=== PATIENT | female | born 1980 | race Caucasian/White ===

== ENCOUNTER 2019-06-20 14:55 | Emergency (ER) | payer SELFPAY ==
[~2019-06-20] VITALS: Ht 152.4 cm; Wt 66.7 kg
[2019-06-20 15:06] VITALS: BP 126/63; TEMP 98.4
[2019-06-20] MEDS ORDERED: ZITHROMAX Z PA250 MG PO (18:08)
[2019-06-20] MEDS ORDERED: PROAIR HFA0.09 MG/AC IH (18:08)
[2019-06-20 18:16] VITALS: PULSE 79
== END 2019-06-20 18:16 | disposition home or self-care (01) ==
LOC: COL.ER 14:55
DX: J11.1 Influenza due to unidentified influenza virus with other respiratory manifestations (principal)

== ENCOUNTER 2019-07-14 23:06 | Inpatient (IN) | payer SELFPAY ==
[~2019-07-14] VITALS: Wt 66.8 kg
[~2019-07-14 23:06] MED LIST: MEDROL 4MG DOSPA4 MG PO; PREDNISONE20 MG PO; PROAIR HFA0.09 MG/AC IH; ZITHROMAX Z PA250 MG PO
[2019-07-15] VITALS (634 sets, daily range): BP systolic 114–131; BP diastolic 72–99; PULSE 96–109; TEMP 98.1–98.6; O2SAT 84–99
[2019-07-15 02:27] LABS: HEMATOCRIT 43.3 % (37.0-47.0); HEMOGLOBIN 14.1 g/dl (12.5-16.0); MEAN CELL VOLUME 90 fl (80.0-100.0); MEAN CORPUSCULAR HEMOGLOBIN 29 pg (27.0-31.0); MEAN CORPUSCULAR HGB CONC 33 g/dl (33.0-37.0); MEAN PLATELET VOLUME 10.2 fl (7.4-10.4); PLATELET COUNT 277 K/mm3 (130-400); REDCELL DISTRIBUTION WIDTH-CV 13.8 % (11.5-14.5)
[2019-07-15 03:12] LABS: ALBUMIN 4.9 gm/dL (3.5-5.0); BILIRUBIN,TOTAL 0.6 mg/dL (0.0-1.0); CALCIUM 9.6 mg/dL (8.4-10.2); CREATININE, serum 0.51 (0.52-1.25); POTASSIUM 3.7 mmol/L (3.4-5.0); TOTAL PROTEIN 8.5 gm/dL (6.4-8.2)
[2019-07-15 03:36] LABS: COLLECTION METHOD CLEAN CATCH
[2019-07-15 03:39] LABS: EOSINOPHIL 20 % (0-4); LYMPHOCYTE 20 % (20.0-51.0); NEUTROPHILS 60 % (42.0-75.2); PLATELET ESTIMATE NORMAL (NORMAL)
[2019-07-15 03:40] LABS: PH 5 (5-8); SQUAMOUS EPITHELIAL 0-2 /hpf; URINE APPEARANCE Clear; URINE BACTERIA None Seen /hpf; URINE BILIRUBIN Negative (NEGATIVE); URINE BLOOD 1+ (NEGATIVE); URINE COLOR Straw; URINE GLUCOSE Negative (NEGATIVE); URINE KETONE 1+ (NEGATIVE); URINE LEUKOCYTE ESTERASE Negative (NEGATIVE); URINE NITRATE Negative (NEGATIVE); URINE PROTEIN(semi-quant) Negative (NEGATIVE); URINE RBC 0-2 /hpf; URINE UROBILINOGEN Negative (NEGATIVE)
[2019-07-15] MEDS ORDERED: TYLENOL 325MG325 MG PO (08:54)
--- NOTE | 2019-07-15 10:16 | NUR ---
PATIENT ARRIVED TO UNIT ROOM ICU 12 @ 0924. AMBULATED FROM STRETCHER TO BED. GAIT STEADY. PATIENT ORIENTED TO ROOM. PRESENTS WITH NO DISTRESS. SEE FLOW SHEET FOR VS OBTAINED WITH TACHYCARDIA. DROPLET ISOLATION IN PLACE FOR COVID-19 TEST PENDING. BED IN LOW POSITION AND CALL LIGHT IN PLACE. PATIENT STRICTLY SWAZI SPEAKING. TO UTILIZE VICE PRESIDENT UNDERWRITING AND HOSPITAL STAFF THAT SPEAK SWAZI.
--- NOTE | 2019-07-15 13:19 | NUR ---
SW attempted to contact the patient via telephone in her room and on her cell phone to complete initial intake, no answer. Will attempt at a later time.
--- NOTE | 2019-07-15 20:55 | NUR ---
Resting in bed. Assessment complete. Lungs wheezing throughout all salcido with expiration. Heart sounds tachy. Bowels active x4. Pulses strong throughout. No edema noted. INT left AC flushed without complications. Right hand IV infusing without complications as ordered. Used trick rodeo rider line to communicate with patient. Patient reports shortness of breath is resolving and beginning to "feel better." Denies pain. Denies needs at this time. Will monitor.
--- NOTE | 2019-07-15 22:45 | NUR ---
Resting in bed. Denies needs. Call light in reach.
[2019-07-16] VITALS (1123 sets, daily range): BP systolic 113–125; BP diastolic 67–85; PULSE 87–113; TEMP 97.7–98.8; O2SAT 84–99
--- NOTE | 2019-07-16 00:30 | NUR ---
Resting in bed. Denies needs. Call light in reach.
--- NOTE | 2019-07-16 07:39 | NUR ---
Patient had uneventful night. Continues on room air with productive cough. Denies needs this AM. Eating breakfast. Report given to UMANG Spence
[2019-07-16 09:16] LABS: HEMATOCRIT 38.6 % (37.0-47.0); HEMOGLOBIN 12.7 g/dl (12.5-16.0); MEAN CELL VOLUME 91 fl (80.0-100.0); MEAN CORPUSCULAR HEMOGLOBIN 30 pg (27.0-31.0); MEAN CORPUSCULAR HGB CONC 33 g/dl (33.0-37.0); MEAN PLATELET VOLUME 10.5 fl (7.4-10.4); PLATELET COUNT 285 K/mm3 (130-400); RED BLOOD COUNT 4.25 M/mm3 (4.10-5.30); REDCELL DISTRIBUTION WIDTH-CV 14.2 % (11.5-14.5)
--- NOTE | 2019-07-16 09:26 | NUR ---
Pt assessment complete. Pt is laying in bed upon entry, she arouses to voice. She denies any pain. Reports SOB, currently on RA. See assessment for lung sounds. Pt denies any N/V. Ate her breakfast without issues. No needs at this time. Call light within reach.
[2019-07-16 09:31] LABS: CALCIUM 9.6 mg/dL (8.4-10.2); CREATININE, serum 0.52 (0.52-1.25); POTASSIUM 3.9 mmol/L (3.4-5.0)
[2019-07-16 09:56] LABS: BAND 8 % (0-10); LYMPHOCYTE 8 % (20.0-51.0); NEUTROPHILS 82 % (42.0-75.2)
[2019-07-16 09:59] LABS: PLATELET ESTIMATE NORMAL (NORMAL)
--- NOTE | 2019-07-16 11:43 | NUR ---
Pt SOB upon entrance, pointing to her inhaler. Contacted respiratory therapy, and administered 2 IH of Albuterol. Pt more comfortable following, breathing much less labored.
--- NOTE | 2019-07-16 15:14 | NUR ---
SW contacted the patient via telephone to complete initial intake. The patient is nigerian speaking. The patient lives in [place] with roommates. The patient is not and has three sons who live in [place], a 15, a 18 and 22 year old. The 18 year old is Issac Brasher and the 22 year old is Alvarez Mojica. Trang phone number is [phone]. The patient denies DME use and is independent with ADLs. The patient does not have a PCP and receives medications from [facility]. The patient does not have advanced directives in the EMR. The local emergency point of contact is Nakul Aranda or Lyle Hendrickson and their contact information is ([phone]). The plan is return home at discharge. business services coordinator will continue to follow.
--- NOTE | 2019-07-16 15:38 | NUR ---
While in with patient she was laughing and was excited to not have any abdominal pain or SOB/coughing with it. Feeling better this afternoon. Will continue to monitor.
--- NOTE | 2019-07-16 20:15 | NUR ---
Pt resting in bed after returning from bathroom. Ambulates without difficulty. Pt reports difficulty breathing. Respirations are labored. Wheezes in bilateral lung salcido. Pt tachypneic with Spo2 93% on RA. Inhaler given. Pt is Estonian speaking but is able to communicated via chemical laboratory assistant. Pt denies pain. No other abnormal assessment findings were noted. Pt denies needs.
--- NOTE | 2019-07-16 21:30 | NUR ---
COVID-19 test negative. Mona VOSS notified by plc engineer. Pt removed from isolation precautions.
--- NOTE | 2019-07-16 22:21 | NUR ---
Pt informed that she would be transferring to Medical floor per orders. Report called to Florina HECK.
--- NOTE | 2019-07-16 22:27 | NUR ---
Received report from UMANG Mistry.
--- NOTE | 2019-07-16 22:40 | NUR ---
Pt transferred to room 318 via wheelchair with belongings. Well tolerated by patient. Patient is on room air. Call light in reach. No needs noted.
--- NOTE | 2019-07-16 22:55 | NUR ---
Pt arrived to medical unit via WC.
--- NOTE | 2019-07-16 23:18 | NUR ---
Alert and oriented x4. Pt does not speak beninese. Utilized [employer] translate to communicate with pt. Denies any pain,SOB, or discomfort at this time. NAD. Crackles heard throughout, on RA. Meds administered. INT to LAC and RH intact, flushed, dressing CDI. Tele monitor in place, leads checked. Needs met at this time. Call light within reach.
[2019-07-17 04:15] VITALS: BP 117/78; PULSE 83; TEMP 98.2
--- NOTE | 2019-07-17 05:39 | NUR ---
Pt made no complaints during the night. Meds administered. Call light within reach.
[2019-07-17 06:40] LABS: BASO % 0.1 % (0.0-2.0); GRAN # 19.9 (1.4-6.5); GRAN % 89.7 % (42.2-75.2); HEMATOCRIT 40.9 % (37.0-47.0); HEMOGLOBIN 13.7 g/dl (12.5-16.0); LYMPH # 1.8 (1.2-3.4); MEAN CELL VOLUME 91 fl (80.0-100.0); MEAN CORPUSCULAR HEMOGLOBIN 30 pg (27.0-31.0); MEAN CORPUSCULAR HGB CONC 34 g/dl (33.0-37.0); MEAN PLATELET VOLUME 11.1 fl (7.4-10.4); MONO # 0.3 (0.1-0.6); MONO % 1.5 % (1.7-9.3); PLATELET COUNT 322 K/mm3 (130-400); REDCELL DISTRIBUTION WIDTH-CV 14.2 % (11.5-14.5)
[2019-07-17 06:50] LABS: CALCIUM 9.6 mg/dL (8.4-10.2); CREATININE, serum 0.52 (0.52-1.25); POTASSIUM 3.8 mmol/L (3.4-5.0)
--- NOTE | 2019-07-17 07:11 | NUR ---
Report given to UMANG Thorne.
[2019-07-17 07:12] VITALS: BP 126/78; PULSE 85; TEMP 97.6
[2019-07-17 11:41] VITALS: BP 130/82; PULSE 85; TEMP 97.9
[2019-07-17] MEDS ORDERED: ANORO IH (12:12)
[2019-07-17] MEDS ORDERED: ARNUITY IH (12:13)
[2019-07-17] MEDS ORDERED: VENTOLIN0.09 MG IH (12:14)
[2019-07-17] MEDS ORDERED: LEVAQUIN 750MG750 M1 PO (12:15)
[2019-07-17] MEDS ORDERED: PREDNISONE10 MG PO (12:19)
--- NOTE | 2019-07-17 12:50 | NUR ---
First visit from the rock breaker. No needs right now.
[2019-07-17] MEDS ORDERED: RT ADVAIR 128 DISKUS IH (14:02)
--- NOTE | 2019-07-17 14:38 | NUR ---
The patient is discharging home this day, 07/16. The patient was requiring a medication voucher. A voucher was provided and it was $195.37 to [facility]. The patient does not have an ID. IRENA Carrion and patient will need an ID to have a follow-up. The patient cannot get an ID so a follow-up appointment could not be scheduled. There are no additonal needs at this time.
--- NOTE | 2019-07-17 18:16 | NUR ---
Patient is alert and oriented. medication was changed from solumedrol to prednisone. patient denies any pain. INT discontinued. patient was discharged with pulmonary, family practice appointment. patient was give levaquin, tapered prednisone, Albuterol, Fluticasone/salmeterol. diplomatic interpreter/translator was used for discharge teaching. patient was escorted down to her ride after discharge.
== END 2019-07-17 17:25 | disposition home or self-care (01) | DRG 203 ==
LOC: COL.ER 23:06 → EU 07-15 07:14 → MEDICAL 07-16 23:11
PROVIDERS: Emergency Medicine; ADMIT Hospitalist
DX: J45.901 Unspecified asthma with (acute) exacerbation (principal); J98.2 Interstitial emphysema; D72.829 Elevated white blood cell count, unspecified; Z98.51 Tubal ligation status; Z87.01 Personal history of pneumonia (recurrent); Z03.818 Encounter for observation for suspected exposure to other biological agents ruled out
CPT/HCPCS: 99222-AI; 99232-AI; 99239; C9113; J0456; J1650; J1956; J2543; J2920; J7030; J7050; J7512

== ENCOUNTER 2019-10-16 16:16 | Emergency (ER) | payer SELFPAY ==
[~2019-10-16] VITALS: Ht 160 cm; Wt 66.8 kg
[~2019-10-16 16:16] MED LIST changes: +ANORO IH; +ARNUITY IH; +LEVAQUIN 750MG750 M1 PO; +PREDNISONE10 MG PO; +RT ADVAIR 128 DISKUS IH; +TYLENOL 325MG325 MG PO; +VENTOLIN0.09 MG IH
[2019-10-16] MEDS ORDERED: PROAIR HFA0.09 MG/AC IH (17:00)
[2019-10-16] MEDS ORDERED: PREDNISONE20 MG PO (17:22)
[2019-10-16] MEDS ORDERED: RT ADVAIR 128 DISKUS IH (17:22)
[2019-10-16 17:38] VITALS: BP 119/53; PULSE 22
[2019-10-16 17:55] VITALS: TEMP 97.6
== END 2019-10-16 17:55 | disposition home or self-care (01) ==
LOC: COL.ER 16:16
DX: J45.901 Unspecified asthma with (acute) exacerbation (principal); Z98.51 Tubal ligation status; Z91.14 Patient's other noncompliance with medication regimen; Z79.51 Long term (current) use of inhaled steroids